=== PATIENT | male | born 1950 | race Caucasian/White ===

== ENCOUNTER 2020-03-25 05:28 | Day surgery (SDC) | payer OTHER ==
[~2020-03-25 05:28] MED LIST: LIPIT PO; VALSART PO
== END 2020-03-25 12:45 | disposition home or self-care (01) ==
LOC: CIR.AMB 05:28
PROVIDERS: ATTEND Orthopaedic Surgery Hand Surgery
DX: M65.321 Trigger finger, right index finger (principal); Z20.828 Contact with and (suspected) exposure to other viral communicable diseases

== ENCOUNTER → 2022-05-17 | Emergency (ER) | payer OTHER | END | disposition left against medical advice (07) | LOC: ER 22:12 | DX: Z53.21 Procedure and treatment not carried out due to patient leaving prior to being seen by health care provider (principal) ==

== ENCOUNTER 2022-08-26 07:05 | Outpatient (CLI) | payer OTHER | END 2022-08-26 07:15 | disposition home or self-care (01) | LOC: RAD 07:05 | DX: R06.00 Dyspnea, unspecified (principal) ==

== ENCOUNTER 2023-08-26 15:47 | Outpatient (CLI) | payer OTHER | END 2023-08-26 15:48 | disposition home or self-care (01) | LOC: RAD 15:47 | DX: Z01.818 Encounter for other preprocedural examination (principal) ==

== ENCOUNTER 2024-10-04 04:06 | Emergency (ER) | payer OTHER ==
[~2024-10-04] VITALS: Ht 177.8 cm; Wt 77.1 kg
[~2024-10-04 04:06] MED LIST changes: +CARVEDILOL12.5 MG; +ELIQUIS2.5 MG PO; +JARDIANCE10 MG PO
[2024-10-04] MEDS ORDERED: ATORVASTATIN CA10 MG PO (04:35)
[2024-10-04] MEDS ORDERED: METOPROLOL SUC100 MG PO (04:35)
[2024-10-04] MEDS ORDERED: KETOROLAC TROMETHAMINE 30 MG VIAL IV STA (06:25)
[2024-10-04] MEDS ORDERED: 0.9 % SODIUM CHLORIDE 500 ML IV ONE (06:30)
[2024-10-04 07:04] LABS: URINE APPEARANCE Clear; URINE BILIRRUBIN Negative (NEGATIVE); URINE BLOOD Negative; URINE COLOR Yellow; URINE KETONE Negative (NEGATIVE); URINE LEUKOCYTE Negative; URINE NITRATE Negative; URINE PROTEIN Negative (NEGATIVE); URINE UROBILINOGEN 0.2 E.U./dl
[2024-10-04 07:05] LABS: URINE BACTERIA 6.1 uL (0.0-1933); URINE RBC 8.6 uL (0.0-20.8); URINE WBC 6.1 uL (0.0-23.2)
[2024-10-04 07:25] LABS: URINE CAST 0.14 uL (0.0-1.40); URINE GLUCOSE >=1000 MG/DL (NEGATIVE)
[2024-10-04 07:58] LABS: ALBUMIN 2.8 gm/dL (3.4-5.0); BILIRUBIN TOTAL 0.46 mg/dL (0.3-1.2); CALCIUM 8.4 mg/dL (8.5-10.1); CREATININE SERUM 0.74 mg/dL (0.70-1.30); GFR 103.97; POTASSIUM 4.52 mEq/L (3.5-5.1); TOTAL PROTEIN 6.8 gm/dL (6.4-8.2)
[2024-10-04 08:03] LABS: HEMATOCRIT 39.5 % (39.0-48.0); HEMOGLOBIN 13.7 g/dL (13-16.00); MEAN CELL VOLUME 97.6 fL (80.0-100.00); MEAN CORPUSCULAR HGB CONC 34.8 g/dl (32.0-36.0); PLATELET COUNT 338 K/uL (150-450); RED BLOOD COUNT 4.04 M/uL (4.00-6.00)
[2024-10-04 08:13] LABS: RED CELL DISTRIBUTION WIDTH 17.7 % (11.5-14.5)
== END 2024-10-04 11:19 | disposition home or self-care (01) ==
LOC: ER 04:08
PROVIDERS: General Practice
DX: R10.9 Unspecified abdominal pain (principal); I10 Essential (primary) hypertension; S30.1XXA Contusion of abdominal wall, initial encounter

== ENCOUNTER → 2024-10-08 | Outpatient (CLI) | payer OTHER ==
[~2024-10-08] MED LIST changes: +ATORVASTATIN CA10 MG PO; +METOPROLOL SUC100 MG PO
== END | disposition home or self-care (01) ==
LOC: SONOGRAMA 13:56
PROVIDERS: ATTEND Specialist
DX: S30.1XXA Contusion of abdominal wall, initial encounter (principal); M79.81 Nontraumatic hematoma of soft tissue